=== PATIENT | female | born 2000 | race Caucasian/White ===

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

== ENCOUNTER 2020-03-23 09:52 | Emergency (ER) | payer MEDICAID, SELFPAY ==
[2020-03-23 09:53] VITALS: BP 145/82; PULSE 100; RESP 16; TEMP 36.6; O2SAT 99; BMI 16.1
--- NOTE | 2020-03-23 10:01 | HMH.EDGENADL ---
ED Disposition Clinical Impression: Contact dermatitis Qualifiers: Contact dermatitis type: unspecified Contact dermatitis trigger: unspecified trigger Qualified Code(s): L25.9 - Unspecified contact dermatitis, unspecified cause Disposition: Home, Self-Care Condition on Discharge: Good Instructions: DI for Contact Dermatitis Additional Instructions: Prednisone and hydroxyzine as prescribed. You may continue to use calamine as needed. Follow-up with primary care provider if not improved in 4 to 5 days. Prescriptions: predniSONE [Prednisone 20mg Tab] 20 mg PO BID #10 tab Transmission Status: [facility] hydrOXYzine pamoate [Vistaril] 25 mg PO Q6H #20 cap Transmission Status: Pending to [facility] Referrals: PCP,No [Primary Care Provider] - - Critical Care Critical Care Time: No Attestation: On 03/23/20, the high probability of a clinically significant, sudden or life threatening deterioration of the following system(s) required my full and direct attention, intervention and personal management. The time I documented below is in addition to time spent performing reported procedures but includes the following listed in this critical care notation. Medical Decision Making - Donato Inquiry Pt receiving controlled substance: No Vital Signs: 03/23/20 09:53 Temperature 98 F Temperature Source Oral Pulse Rate [Left Radial] 100 H Respiratory Rate 16 Blood Pressure [Right Arm] 145/82 H Blood Pressure Mean [Right Arm] 103 Blood Pressure Position [Right Arm] Sitting 02 Sat by Pulse Oximetry 99 Oxygen Delivery Method Room Air General Adult HPI - General Stated complaint: allergis reaction Time Seen by Provider: 03/23/20 10:05 - History of Present Illness HPI narrative: 4-day history of pruritic rash that started on her arms, now also involves her legs and face. No known exposure. She has been outside mowing, but no other work with plants or weeds. No shortness of breath. She has tried Tylenol, ibuprofen, and calamine lotion without improvement. She complains of severe itching, unable to sleep. - Related Data Previous Rx's Medication Instructions Recorded hydrOXYzine pamoate [Vistaril] 25 mg PO Q6H #20 cap 03/23/20 predniSONE [Prednisone 20mg 20 mg PO BID #10 tab 03/23/20 Tab] Allergies Allergy/AdvReac Type Severity Reaction Status Date / Time No Known Allergies Allergy Verified 11/28/19 14:27 [facility] History - Hepatitis A Screen Attestation statement:: This patient has been screened for Hepatitis A risk factors. I have reviewed the patient's past medical history: Yes Other Medical History: Reports: Other Comment: Ashanti Del Rosario at 12 yrs old Other Surgeries: Yes: No Previous Surgery - Social History Smoking Status: Current every day smoker Tobacco Type: cigarettes Alcohol Intake: never Occupational Status: other ROS Obtained: Yes Systems reviewed as appropriate & no additional complaints - Constitutional Constitutional: Denies fever(s) - Respiratory Respiratory: No dyspnea - Integumentary/Breasts Skin/Breast: Reports itching, Reports rash Physical Exam - General General appearance: alert, in no apparent distress - ENT ENT exam: Present: normal exam - Chest Chest inspection: Present: symmetric chest wall rise - Respiratory Respiratory exam: Present: normal lung sounds bilaterally. Absent: respiratory distress - Cardiovascular Cardiovascular exam: Present: regular rate - Extremities Exam Extremities exam: Present: normal capillary refill - Neurological Exam Neurological exam: Present: alert, oriented X3 - Psychiatric Psychiatric exam: Present: normal affect, normal mood - Skin Skin exam: Present: warm, dry, rash (Patchy erythematous rash antecubital fossae, anterior lower legs, face consistent with contact dermatitis, no vesicles)
[2020-03-23 10:25] VITALS: BP 132/74; PULSE 92; RESP 16; TEMP 36.6; O2SAT 98
== END 2020-03-23 10:26 | disposition home or self-care (01) ==
PROVIDERS: Emergency Provider Emergency Medicine
DX: L25.9 Unspecified contact dermatitis, unspecified cause (principal); F17.210 Nicotine dependence, cigarettes, uncomplicated
CPT/HCPCS: 96372; 99281

== ENCOUNTER 2020-06-03 15:37 | Emergency (ER) | payer MEDICAID, SELFPAY ==
[2020-06-03 15:44] VITALS: BP 116/74; PULSE 99; RESP 18; TEMP 36.6; O2SAT 98; BMI 17.7
[2020-06-03 16:36] VITALS: BP 116/74; PULSE 99; RESP 18; TEMP 36.6; O2SAT 98; BMI 17.6
--- NOTE | 2020-06-03 16:48 | HMH.EDUTC ---
[facility] [place] Disposition Clinical Impression: Contact dermatitis Qualifiers: Contact dermatitis type: unspecified Contact dermatitis trigger: unspecified trigger Qualified Code(s): L25.9 - Unspecified contact dermatitis, unspecified cause Disposition: Home, Self-Care Condition on Discharge: Good Instructions: Contact Dermatitis, DI for Contact Dermatitis, Prednisone Additional Instructions: Go home and look to see what you may be having a reaction too Over the counter Benadryl may help with itching and irritation Follow up with Family Doctor for evaluation Follow up with Allergy Dr Montoya for further evaluation and allergy testing Return if needed Start steriods tomorrow Straight to ER if any life threatening symptoms Prescriptions: predniSONE [Prednisone 20mg Tab] 20 mg PO BID 5 Days #10 tab Transmission Status: Received by [facility] Referrals: PCPMelinda [Primary Care Provider] - As needed Kb Montoya [Referring] - Time of Disposition: 17:16 Medical Decision Making - Donato Inquiry Pt receiving controlled substance: No Donato was queried for this patient: No Vital Signs: 06/03/20 15:44 06/03/20 16:36 06/03/20 17:06 Temperature 97.9 F 97.9 F 97.9 F Temperature Source Oral Oral Pulse Rate 99 H Pulse Rate [Radial] 99 H 99 H Respiratory Rate 18 18 18 Blood Pressure 116/74 Blood Pressure [Right Arm] 116/74 116/74 Blood Pressure Mean [Right Arm] 88 88 Blood Pressure Source [Right Arm] Automatic Cuff Automatic Cuff Blood Pressure Position [Right Arm] Sitting Sitting 02 Sat by Pulse Oximetry 98 98 Oxygen Delivery Method Room Air Room Air Orders (Tests/Meds): ED MEDICATIONS Discontinued Medications Generic Name Dose Route Start Last Admin Trade Name Porsha PRN Reason Stop Dose Admin Methylprednisolone Sodium Succinate 125 mg 06/03/20 16:49 06/03/20 17:05 Methylprednisolone Sod Succ 125mg Vial IM 06/03/20 16:50 125 mg ONCE ONE Administration Medical Decision Narrative: Patient denies risk of [facility] [place] HPI - General Stated complaint: possible allergic reaction Time Seen by Provider: 06/03/20 15:55 Mode of Arrival: Ambulatory Source of Information: Patient Limitations: No Limitations Description of Symptoms (Recalled from Triage Doc. by RN): RASH ON RIGHT ARM AND FACE SINCE YESTERDAY HEENT Symptoms (Recalled from RN notes): No Resp Symptoms (Recalled from RN notes): No Skin Symptoms (Recalled from RN notes): No MS Symptoms (Recalled from RN notes): No Functional Status (Recalled from RN notes): WNL - History of Present Illness Provider Complaint: Patient states thats she thinks she is having a reaction to something states that she did something similar to this a couple months ago and was treated and it went away but unsure what she may have had a reaction to States that rash started on her left side of face and now on her neck, left arm and side States that it is itchy and welp like - Related Data Previous Rx's Medication Instructions Recorded hydrOXYzine pamoate [Vistaril] 25 mg PO Q6H #20 cap 03/23/20 predniSONE [Prednisone 20mg 20 mg PO BID #10 tab 03/23/20 Tab] predniSONE [Prednisone 20mg 20 mg PO BID 5 Days #10 tab 06/03/20 Tab] Allergies Allergy/AdvReac Type Severity Reaction Status Date / Time No Known Allergies Allergy Verified 11/28/19 14:27 - Worker's Comp Is this a Worker's Comp case?: No [facility] History - Hepatitis A Screen Drug use history?: No High risk sexual behaviors?: No History of sexually transmitted infection?: No Currently employed?: No Childcare worker?: No Do you have indoor plumbing?: Yes Do you have electricity?: Yes Attestation statement:: This patient has been screened for Hepatitis A risk factors. I have reviewed the patient's past medical history: Yes Other Medical History: Reports: Other Comment: Nia's Tejey at 12 yrs old Other Surgeries: Yes: No Previous Surgery - Social His
[2020-06-03 17:06] VITALS: BP 116/74; PULSE 99; RESP 18; TEMP 36.6; O2SAT 98
== END 2020-06-03 17:16 | disposition home or self-care (01) ==
PROVIDERS: Emergency Provider Nurse Practitioner
DX: L25.9 Unspecified contact dermatitis, unspecified cause (principal); F17.210 Nicotine dependence, cigarettes, uncomplicated
CPT/HCPCS: 96372; 99201